=== PATIENT | female | born 1990 | race African-American/Black ===

== ENCOUNTER 2024-04-14 10:02 | Emergency (ER) | payer BC ==
[~2024-04-14] VITALS: Ht 160 cm; Wt 90.7 kg
[2024-04-14 10:05] VITALS: BP 149/93; TEMP 98.3
[2024-04-14 10:40] VITALS: O2SAT 98
== END 2024-04-14 10:49 | disposition home or self-care (01) ==
LOC: ER 10:07
DX: L29.9 Pruritus, unspecified (principal); Z60.2 Problems related to living alone